=== PATIENT | male | born 1990 | race Native Hawaiian/Other Pacific Islander ===

== ENCOUNTER 2016-09-20 07:38 | Emergency (ER) | payer OTHER ==
[~2016-09-20] VITALS: Ht 167.6 cm; Wt 117.9 kg
[2016-09-20 07:42] VITALS: BP 180/109; TEMP 98.2
[2016-09-20 08:51] LABS: PLATELET COUNT 469 K/uL (142-355)
== END 2016-09-20 09:12 | disposition home or self-care (01) ==
LOC: ED 07:38
PROVIDERS: Specialist
DX: M54.5 Low back pain (principal); R31.9 Hematuria, unspecified
CPT/HCPCS: 36415; 81000; 85027; 99283

== ENCOUNTER 2019-05-21 07:20 | Emergency (ER) | payer OTHER ==
[~2019-05-21] VITALS: Ht 167.6 cm; Wt 145.2 kg
[2019-05-21 07:35] VITALS: TEMP 98.5
[2019-05-21 08:05] LABS: POTASSIUM 4.5 mmol/L (3.6-5.2); SODIUM 137 mmol/L (136-145)
[2019-05-21 08:08] LABS: PLATELET COUNT 479 K/uL (142-355)
[2019-05-21 08:50] VITALS: BP 134/97
== END 2019-05-21 08:50 | disposition home or self-care (01) ==
LOC: ED 07:20
PROVIDERS: Emergency Medicine
DX: R05 Cough (principal); R04.2 Hemoptysis
CPT/HCPCS: 80053; 82550; 82553; 84484; 85027; 85379; 93005; 99283